=== PATIENT | female | born 1960 | race Caucasian/White ===

== ENCOUNTER 2021-10-31 11:23 | Emergency (ER) | payer OTHER, SELFPAY ==
--- NOTE | ~2021-10-31 | XR_ITS ---
XR knee LT min 4V DATE: 10/31/2021 12:00 INDICATION: Fall. Left knee pain. TECHNIQUE: 4 views including crosstable lateral COMPARISON: None FINDINGS: No fracture or dislocation or joint effusion. No periosteal reaction or bone destruction. No radiopaque intra-articular loose body or chondrocalcinosis. Mild loss of height of medial compartment joint space. IMPRESSION: No fracture or dislocation or joint effusion Reviewed, dictated and finalized at location B.
--- NOTE | ~2021-10-31 | XR_ITS ---
XR hip LT min 2V DATE: 10/31/2021 12:00 INDICATION: Fall. Left hip pain. TECHNIQUE: AP and lateral views COMPARISON: None FINDINGS: No fracture or dislocation, avascular necrosis or bone destruction of the left hip is detec marcelino. Left hip joint space appears well preserved. The left sacroiliac joint is intact. IMPRESSION: No fracture or dislocation of the left hip is detected Reviewed, dictated and finalized at location B.
--- NOTE | 2021-10-31 11:25 | ED.LOWEXIN ---
HPI - Extremity Injury (Lower) General Chief Complaint: Extremity Injury, Lower Stated Complaint: Fall/left knee pain Time Seen by Provider: 10/31/21 11:37 Source: patient, RN notes reviewed and old records reviewed Mode of arrival: ambulatory Limitations: no limitations History of Present Illness HPI Narrative: 61-year-old female presents to the [facility] with complaints of left knee pain and left posterior hip pain. Patient reports that she fell yesterday landing on her knee and left side. No bruising or swelling noted to the knee, hip area. Tenderness to the SI joint area and lateral hip. Walks with a normal gait. No abdominal pain. Denies hitting head, no loss of consciousness. No numbness or tingling in extremities MD complaint: knee injury (left) Related Data Home Medications Medication Instructions Recorded Confirmed rosuvastatin 10 mg PO DAILY 10/31/21 10/31/21 Allergies Allergy/AdvReac Type Severity Reaction Status Date / Time propoxyphene Allergy Intermediate Other Verified 10/31/21 11:26 Penicillins Allergy Mild Rash Verified 10/31/21 11:26 Review of Systems Review of Systems: All systems reviewed & are unremarkable except as noted in HPI and below Constitutional: Constitutional: Reports no additional constitutional complaints, Denies chills and Denies fever(s) Eyes: Eyes: Reports no additional eye complaints and Denies change in vision ENT: Reports system reviewed and no additional complaints, except as documented Cardiovascular: Cardiovascular: Reports no additional cardiovascular complaints and Denies chest pain Respiratory: Respiratory: Reports no additional respiratory complaints, Denies cough, Denies dyspnea and Denies wheezing Gastrointestinal: Gastrointestinal: Reports no additional gastrointestinal complaints, Denies abdominal pain, Denies nausea and Denies vomiting Musculoskeletal: Musculoskeletal: Reports as per HPI, Reports back pain (Left lower, SI joint), Reports arthralgias (Left knee) and Denies joint swelling Integumentary/Breasts: Skin/Breast: Reports system reviewed and no additional complaints, except as docu Neurologic: Reports system reviewed and no additional complaints, except as documented Psychiatric: Psychiatric: Reports no additional psychiatric complaints Allergic/Immunologic: Allergic/Immunologic: Reports no additional allergic/immunologic complaints PMFSH Past Medical History Medical History High cholesterol History of high blood pressure Social History Social History Gender identity (if verbalized by the patient): Female Comments At the time of my signature, I reviewed and agree with the nursing past medical, surgical, social, and family history. There is no relevant family history pertinent to the patient complaint. Exam Const: General: healthy appearing, no acute distress and alert Nutritional Appearance: well nourished and obese Orientation/consciousness: patient oriented x3 Limitations: no limitations HENMT: Head: normal to inspection Ears: external ears normal Eyes: Pupils: Equal, round and reactive pupils present Neck: Neck: normal visual inspection, no lymphadenopathy and no meningeal signs Chest: Chest palpation & inspection: normal inspection of the chest Resp: Effort & Inspection: normal respiratory effort Auscultation: clear to auscultation bilaterally Cardio: Rate: regular rate Rhythm: regular rhythm : General: Yes no CVA tenderness Back/Spine/Pelvis: Back: no CVA tenderness Skin: General skin exam: normal color Rashes: no rashes Wounds: no wounds Neuro: General: patient oriented x3, moves all extremities, no meningeal signs and no focal motor deficits Cranial nerves: Yes Equal, round and reactive pupils present Speech: normal speech Gait exam (Neuro): Normal gait present Extrem: General: full ROM, capillary r
[2021-10-31 11:37] VITALS: BP 151/66; PULSE 84; RESP 16; TEMP 37.1; O2SAT 98
== END 2021-10-31 12:25 | disposition home or self-care (01) ==
PROVIDERS: Emergency Provider Nurse Practitioner
DX: S80.02XA Contusion of left knee, initial encounter (principal); M25.552 Pain in left hip; W19.XXXA Unspecified fall, initial encounter
CPT/HCPCS: 73502; 73564; 99214; G0463

== ENCOUNTER 2023-10-31 08:15 | Outpatient (CLI) | payer MEDICARE, SELFPAY ==
--- NOTE | ~2023-10-31 | US_ITS ---
Limited Abdominal Sonogram: Real-time sonographic imaging of the right upper quadrant was performed. Clinical History: Abdominal pain Findings: The liver appears echogenic with no evidence of bile duct dilatation. Hypoechoic area adj acent to the gallbladder probably represents focal fatty sparing. Main portal vein demonstrates viridiana l direction of flow. The gallbladder is well distended, and appears normal with no evidence of gallst one or wall thickening. The common bile duct measures 7 mm. The visualized pancreas, aorta, and IVC are unremarkable. Impression: Diffuse fatty infiltration of the liver. Probable focal fatty sparing adjacent to the gallbladder. MR could be considered to more definitively exclude mass, as indicated. Reviewed, dictated and finalized at location . Impression: Diffuse fatty infiltration of the liver. Probable focal fatty sparing adjacent to the gallbladder. MR could be considered to more definitively exclude mass, a s indicated.
== END 2023-10-31 08:16 ==
DX: K76.0 Fatty (change of) liver, not elsewhere classified (principal)
CPT/HCPCS: 76705

== ENCOUNTER 2023-11-07 13:44 | Outpatient (CLI) | payer MEDICARE, SELFPAY ==
--- NOTE | ~2023-11-07 | XR_ITS ---
EXAMINATION: XR pelvis 1-2V DATE: 11/07/2023 14:17 INDICATION: Left hip pain. TECHNIQUE: An anteroposterior view of the pelvis was obtained. COMPARISON: Left hip radiograph 10/31/2021 FINDINGS: Bone alignment is normal. No fracture. The hip joint spaces are normal. IMPRESSION: 1. Normal hips. Reviewed, dictated and finalized at location E. IMPRESSION: 1. Normal hips.
--- NOTE | ~2023-11-07 | XR_ITS ---
EXAMINATION: XR lumbar spine min 4V DATE: 11/07/2023 14:17 INDICATION: Low back pain. TECHNIQUE: 5 views of lumbar spine were obtained. COMPARISON: None. FINDINGS: There is 5 degrees dextrocurvature of thoracolumbar spine. Vertebral body heights are viridiana l. Intervertebral disc heights are normal. There are endplate osteophytes at most levels. There is mu ltilevel facet joint osteoarthritis, severe in lower lumbar spine. IMPRESSION: 1. Mild lumbar spondylosis. Reviewed, dictated and finalized at location E. IMPRESSION: 1. Mild lumbar spondylosis.
--- NOTE | ~2023-11-07 | XR_ITS ---
EXAMINATION: XR hip LT min 2V DATE: 11/07/2023 14:17 INDICATION: Left hip pain. TECHNIQUE: 3 views of left hip were obtained. COMPARISON: None. FINDINGS: Bone alignment is normal. No fracture. Left hip joint space is normal. IMPRESSION: 1. Normal left hip. Reviewed, dictated and finalized at location E. IMPRESSION: 1. Normal left hip.
== END 2023-11-07 13:45 ==
DX: M43.06 Spondylolysis, lumbar region (principal); M25.552 Pain in left hip
CPT/HCPCS: 72110; 72170; 73502

== ENCOUNTER 2024-06-10 09:38 | Emergency (ER) | payer MEDICARE, SELFPAY ==
--- NOTE | ~2024-06-10 | CT_ITS ---
CT brain wo con Ordering provider: Joaquin De Paz MD History: 63 years Female with . MITCHELL. vision change . Comparison: None. Technique: CT of the head without contrast. Radiation reduction technique utilized.The dose-length product was 605.33 mGy-cm. FINDINGS: BRAIN PARENCHYMA AND CSF SPACES: Mild leukoaraiosis and diffuse cortical atrophy. Mild atheromatous d isease. No midline shift, mass effect or hemorrhage. The brain parenchyma and CSF spaces are otherwi se normal. VISUALIZED PARANASAL SINUSES: Left maxillary sinus disease MASTOIDS: Well aerated. BONES: The bones appear intact. SOFT TISSUES: Visualized nasopharynx is normal. Superficial soft tissues are normal. IMPRESSION: No acute intracranial findings. Reviewed, dictated and finalized at location A. [facility]
--- NOTE | ~2024-06-10 | XR_ITS ---
EXAMINATION: XR chest 2V 06/10/2024 10:04 INDICATION: Upper respiratory infection PROCEDURE: 2 view chest COMPARISON: No prior studies for comparison. FINDINGS: The lungs are clear. The cardiomediastinal silhouette is within normal limits. There are no pleural effusions. There is no pneumothorax suspected. IMPRESSION: 1: NO ACUTE CARDIOPULMONARY DISEASE. Reviewed, dictated and finalized at location B. ENTIALING ANALYST
[2024-06-10 09:48] VITALS: BP 171/77; PULSE 82; RESP 17; TEMP 36.6; O2SAT 98
--- NOTE | 2024-06-10 09:52 | ED_ITS ---
HPI - General Adult General Chief complaint: Headache Stated complaint: MITCHELL, vision changes Time Seen by Provider: 06/10/24 09:40 History of Present Illness HPI narrative: 63-year-old female presents to the emergency department for evaluation for multiple complaints. Patient states she has been having intermittent headache over the last few days. Patient states that 3 times over the last few days she has had approximately 10 seconds where she feels her vision goes blurred she closes her eyes and that returns to normal. Patient does have history of high blood pressure and patient's blood pressure has been running a little higher. Patient also does complain of cough and congestion has been going to greater than 1 month and abdominal pain for the right upper quadrant that is been going on an extended duration as well. Related Data Home Medications ?Medication ?Instructions ?Recorded ?Confirmed ?Last Taken ?Type rosuvastatin 10 mg tablet 10 mg PO DAILY 10/31/21 10/31/21 Unknown History Allergies Allergy/AdvReac Type Severity Reaction Status Date / Time propoxyphene Allergy Intermediate Other Verified 10/31/21 11:26 Penicillins Allergy Mild Rash Verified 10/31/21 11:26 Review of Systems 2 Review of Systems: All systems reviewed & are unremarkable except as noted in HPI and below PMFSH Past Medical History Medical History High cholesterol History of high blood pressure Social History Social History Gender identity (if verbalized by the patient): Female Exam 2 Narrative: APPEARANCE: Well appearing, no pain, no distress, well-nourished. HEAD: normocephalic, atraumatic. EYES: PERRLA/EOMI, conjunctivae clear. NOSE: Normal no drainage EARS:TMS clear with good light reflex. THROAT: Pharynx clear, no exudate. NECK: Supple. No adenopathy, no masses. RESPIRATORY: Airway patent, respirations nonlabored. Clear to auscultation bilaterally, no rales, rhonchi, wheezing. CARDIOVASCULAR: Regular rate and rhythm without murmurs rubs or gallops. ABDOMINAL: Soft, nontender, nondistended, normal bowel sounds MUSCULOSKELETAL: Moves all extremities. Strength/ROM intact, No edema, No calf tenderness. NEURO: Alert. Cranial nerves II through XII intact. Grossly intact SKIN: Warm, dry. Normal Color Course Vital Signs Vital signs: Vital Signs Temperature 98 F 06/10/24 09:48 Pulse Rate 82 06/10/24 09:48 Respiratory Rate 17 06/10/24 09:48 Blood Pressure 171/77 H 06/10/24 09:48 Pulse Oximetry 98 06/10/24 09:48 Oxygen Delivery Room Air 06/10/24 09:48 Temperature 97.9 F 06/10/24 11:19 Pulse Rate 63 06/10/24 13:31 Respiratory Rate 20 06/10/24 13:31 Blood Pressure 101/66 06/10/24 13:31 Pulse Oximetry 99 06/10/24 13:31 Oxygen Delivery Room Air 06/10/24 09:48 Medical Decision Making MDM Narrative Medical decision making narrative: 63-year-old female presents to the emergency department for evaluation for intermittent visual changes which she states last 10 seconds at a time, patient denies any current visual changes. Patient states he is having intermittent headache but states her headache is resolved. Patient initially ride to the emergency department she was hypertensive with a blood pressure of 170, patient's blood pressure did spontaneously improve without medications. On re- evaluation patient did feel improved. Patient is afebrile with no leukocytosis and hemoglobin of 14.3, INR 0.9 patient has no significant abnormalities on her CMP. Patient's blood sugar is 122. UA was negative for infection patient was negative for influenza RSV and for COVID. Patient was updated the results of her workup was encouraged to continue have close follow-up with her primary care physician for further workup. All questions concerns were addressed. Differential Diagnosis Differential Diagnosis: PA, CVA, migraine, headache, diabetic neuropathy Vital Signs Vital Signs: Vital Signs Temperature 98 F 06/10/24 09:48 Pulse Rate 82 06/10/24 09:48 Respiratory Rate 17 06/10/24 09:48 Blood Pressure 171/77 H 06/10/24 09:48 Pulse Oximetry 98 06/10/24 09:48 Oxygen Delivery Room Air 06/10/24 09:48 Temperature 97.9 F 06/10/24 11:19 Pulse Rate 63 06/10/24 13:31 Respiratory Rate 20 06/10/24 13:31 Blood Pressure 101/66 06/10/24 13:31 Pulse Oximetry 99 06/10/24 13:31 Oxygen Delivery Room Air 06/10/24 09:48 Lab Data Lab results reviewed: Yes I reviewed the patient's lab results. 06/10/24 10:22 06/10/24 10:22 Labs: Lab Results 06/10/24 Range/Units 10:22 WBC 9.8 (4.5-10.0) K/mm3 RBC 4.91 (4.2-5.4) M/mm3 Hgb 14.3 (12.0-15.0) g/dL Hct 42.7 (37.0-47.0) % MCV 87.0 (80-100) fl MCH 29.1 (26-34) pg MCHC 33.5 (32-36) g/dl RDW 12.9 (11.5-14.5) % Plt Count 334 (150-375) k/mm3 MPV 9.6 (7.4-10.4) fl Immature Gran % (Auto) 0.5 (0-0.5) % Neut % (Auto) 62.1 (45.5-73.1) % Lymph % (Auto) 28.1 (18.3-44.2) % [place] % (Auto) 7.1 (2.6-8.5) % Eos % (Auto) 1.3 (0-4.4) % Baso % (Auto) 0.9 (0.2-1.2) % Lymph # (Auto) 2.75 (0.9-3.2) K/mm3 [place] # (Auto) 0.7 H (0.1-0.6) K/mm3 Eos # (Auto) 0.1 (0-0.3) K/mm3 Baso # (Auto) 0.1 (0.0-0.1) K/mm3 Abs Immat Gran (auto) 0.05 H (0.00-0.031) K/mm3 Absolute Neuts (auto) 6.1 (1.3-6.7) K/mm3 Absolute Nucleated RBC 0.000 (0.0-0.012) K/mm3 Nucleated RBC % 0.0 (0.0-0.2) % PT 12.5 (11.1-14.7) Seconds INR 0.9 APTT 25.6 (22.3-36.8) Seconds Sodium 138 (137-145) mmol/L Potassium 3.8 (3.4-5.0) mmol/L Chloride 106 (98-107) mmol/L Carbon Dioxide 30 (22-30) mmol/L Anion Gap 2 L (4-12) mmol/L BUN 23 H (7-17) mg/dL Creatinine 0.70 (0.7-1.0) mg/dL Estim Creat Clear Calc 68 ml/min Estimated GFR > 60 (59 - ) Glucose 122 H (65-110) mg/dL Calcium 9.8 (8.4-10.2) mg/dL Total Bilirubin 0.5 (0.2-1.3) mg/dL AST 41 H (14-36) U/L ALT 38 H (6-35) U/L Alkaline Phosphatase 107 (38-126) U/L Total Protein 7.0 (6.3-8.2) g/dL Albumin 4.2 (3.5-5.1) g/dL Urine Color Yellow (Yellow) Urine Appearance Clear (Clear) Urine pH 7.5 (5.0-9.0) Ur Specific [place] 1.008 (1.001-1.035) Urine Protein Negative (Negative) mg/dL Urine Glucose (UA) Negative (Negative) mg/dL Urine Ketones Negative (Negative) mg/dL Ur Blood (Man) Negative (Negative) Urine Nitrate Negative (Negative) Urine Bilirubin Negative (Negative) Urine Urobilinogen 0.2 (<2.0) mg/dL Leukocyte Esterase Rfl Negative (Negative) HUI/UL Influenza A (RT-PCR) Negative (Negative) Influenza B (RT-PCR) Negative (Negative) RSV (RT-PCR) Negative (Negative) SARS-CoV-2 RNA (RT-PCR) Negative (Negative) Imaging Data Radiologist's impression: Impressions Head CT 06/10/24 10:03 IMPRESSION: No acute intracranial findings. Chest X-Ray 06/10/24 10:08 IMPRESSION: 1: NO ACUTE CARDIOPULMONARY DISEASE. Discharge Plan Discharge Clinical Impression: Headache, Hypertension, Vision changes Patient Disposition: Home, Self-Care Condition: Stable Instructions: Antibiotic Form, Acute Headache (DC), Hypertension (ED) Additional Instructions: Have close follow-up with your primary care physician. If you have any worsening symptoms then please call or return to the emergency department. Patient Language: Upper Sorbian Prescriptions: No Action rosuvastatin 10 mg Tablet 10 mg PO DAILY baclofen 10 mg tablet 10 mg PO TID PRN (Reason: muscle pain) Qty: 10 0RF ibuprofen 600 mg tablet 600 mg PO TID PRN (Reason: pain) Qty: 30 0RF Follow-up/Referrals: PHYSICIAN NOT ON STAFF,NONSTAFF [Non-Staff] -
[2024-06-10 10:30] LABS: Basophils Absolute Auto 0.1 K/mm3 (0.0-0.1); Basophils Percent Auto 0.9 % (0.2-1.2); Eosinophils Absolute Auto 0.1 K/mm3 (0-0.3); Eosinophils Percent Auto 1.3 % (0-4.4); Hematocrit 42.7 % (37.0-47.0); Hemoglobin 14.3 g/dL (12.0-15.0); Immature Granulocyte Absolute 0.05 K/mm3 (0.00-0.031); Immature Granulocyte Percent A 0.5 % (0-0.5); Lymphocytes Absolute Auto 2.75 K/mm3 (0.9-3.2); Lymphocytes Percent Auto 28.1 % (18.3-44.2); Mean Corpuscular HGB Conc 33.5 g/dl (32-36); Mean Corpuscular Hemoglobin 29.1 pg (26-34); Mean Platelet Volume 9.6 fl (7.4-10.4); Monocytes Absolute Auto 0.7 K/mm3 (0.1-0.6); Monocytes Percent Auto 7.1 % (2.6-8.5); Neutrophils Absolute Auto 6.1 K/mm3 (1.3-6.7); Neutrophils Percent Auto 62.1 % (45.5-73.1); Platelet Count Result 334 k/mm3 (150-375); Red Blood Count 4.91 M/mm3 (4.2-5.4); Red Cell Distribution Width 12.9 % (11.5-14.5); White Blood Count 9.8 K/mm3 (4.5-10.0)
[2024-06-10 10:32] VITALS: BP 117/50; PULSE 69; RESP 16; TEMP 36.6; O2SAT 98
[2024-06-10 10:35] LABS: Add Urine Microscopic? NO; Appearance Urine Clear (Clear); Bilirubin Urine Negative (Negative); Blood Urine Negative (Negative); Color Urine Yellow (Yellow); Glucose Urine UA Negative (Negative); Ketones Urine Negative (Negative); Leukocyte Esterase Ur Negative LEU/UL (Negative); Nitrate Urine Negative (Negative); Protein Urine Negative (Negative); Specific Grav Ur 1.008 (1.001-1.035); Urobilinogen Urine 0.2 mg/dL (<2.0); pH Urine 7.5 (5.0-9.0)
[2024-06-10] MEDS: diphenhydrAMINE HCl INJ 50 MG/ML VIAL 25 MG IV PUSH (10:41)
[2024-06-10 10:42] LABS: INR 0.9; Prothrombin Time 12.5 Seconds (11.1-14.7)
[2024-06-10] MEDS: PROCHLORPERAZINE EDISYLATE 10 MG/2 ML VIAL IV PUSH (10:43)
[2024-06-10] MEDS: KETOROLAC 15 MG/ML VIAL (*BKC) IV PUSH (10:43)
[2024-06-10 10:44] LABS: Partial Thromboplastin Time 25.6 Seconds (22.3-36.8)
[2024-06-10 10:54] LABS: Alanine Aminotransferase 38 U/L (6-35); Albumin Level 4.2 g/dL (3.5-5.1); Alkaline Phosphatase 107 U/L (38-126); Anion Gap 2 mmol/L (4-12); Aspartate Amino Transferase 41 U/L (14-36); Bilirubin,Total 0.5 mg/dL (0.2-1.3); Blood Urea Nitrogen 23 mg/dL (7-17); Calcium 9.8 mg/dL (8.4-10.2); Carbon Dioxide 30 mmol/L (22-30); Chloride 106 mmol/L (98-107); Estimated CRCL calculation 68 ml/min; Estimated Glomerular Filt Rate > 60; Glucose 122 mg/dL (65-110); Potassium 3.8 mmol/L (3.4-5.0); Sodium 138 mmol/L (137-145)
[2024-06-10 11:11] LABS: Influenza A QL RT-PCR Negative (Negative); Influenza B QL RT-PCR Negative (Negative); RSV RNA, RT-PCR Negative (Negative); SARS-CoV-2 RNA PCR Negative (Negative)
[2024-06-10 11:19] VITALS: BP 127/75; PULSE 76; RESP 16; TEMP 36.6; O2SAT 98
[2024-06-10 13:31] VITALS: BP 101/66; PULSE 63; RESP 20; O2SAT 99
== END 2024-06-10 13:35 | disposition home or self-care (01) ==
PROVIDERS: Emergency Provider Emergency Medicine
DX: R51.9 Headache, unspecified (principal); I10 Essential (primary) hypertension; H53.9 Unspecified visual disturbance; Z20.822 Contact with and (suspected) exposure to COVID-19; E78.00 Pure hypercholesterolemia, unspecified
CPT/HCPCS: 36415; 70450; 71046; 80053; 81003; 85025; 85610; 85730; 87637; 96374; 96375; 99284; J0780; J1200; J1885